=== PATIENT | female | born 1945 | race African-American/Black ===

== ENCOUNTER 2023-08-14 22:19 | Inpatient (IN) | payer MEDICARE, OTHER ==
[~2023-08-14] VITALS: Ht 157.5 cm; Wt 49.9 kg
[2023-08-14] MEDS ORDERED: BUDE10.2 IH (22:33)
[2023-08-14] MEDS ORDERED: QUET25TA PO (22:33)
[2023-08-14] MEDS ORDERED: ALBU8.5H8 IH (22:33)
[2023-08-14] MEDS ORDERED: ACET-3117 PO (22:33)
[2023-08-14] MEDS ORDERED: MELA5TAB21 PO (22:33)
[2023-08-14 23:24] LABS: CALCIUM 9.2 mg/dL (8.5-10.1); CARBON DIOXIDE 29 mmol/L (21-32); CHLORIDE 107 mmol/L (98-107); CREATININE 0.6 mg/dL (0.6-1.3); GLUCOSE 104 mg/dL (74-106); SODIUM SERUM 143 mmol/L (136-145); UREA NITROGEN, BLOOD 8 mg/dL (7-18)
[2023-08-14 23:26] LABS: BASOPHILS % (AUTO) 0.5 % (0.0-2.0); DIFFERENTIAL COMMENT 0; EOSINOPHILS # (AUTO) 0.3 K/uL (0.0-0.7); EOSINOPHILS % (AUTO) 8.1 % (0.0-7.0); ETHANOL < 3 MG/DL (0-10); HEMATOCRIT 37.8 % (31.2-41.9); HEMOGLOBIN 12.7 g/dL (10.9-14.3); LYMPHOCYTES # (AUTO) 1.9 K/uL (0.8-4.8); LYMPHOCYTES % (AUTO) 47.8 % (20.5-51.5); MEAN CORPUSCULAR HGB CONC 34 g/dL (32.3-35.6); MONOCYTES # (AUTO) 0.4 K/uL (0.1-1.30); MONOCYTES % (AUTO) 9.4 % (0.0-11.0); NEUTROPHILS # (AUTO) 1.4 K/uL (1.8-8.9); NEUTROPHILS % (AUTO) 34.2 % (38.5-71.5); PLATELET COUNT (AUTO) 204 K/uL (179-408); RED BLOOD CELL COUNT(AUTO) 4.11 MIL/uL (3.63-4.92); RED CELL DISTRIBUTION WIDTH 13.6 % (12.3-17.7)
[2023-08-14 23:39] LABS: ALANINE AMINOTRANSFERASE 18 U/L (14-59); ALBUMIN 3.6 g/dL (3.4-5.0); ALKALINE PHOSPHATASE 65 U/L (50-136); ASPARTATE AMINOTRANSFERASE 14 U/L (15-37); BILIRUBIN,DIRECT 0.1 mg/dL (0.0-0.2); BILIRUBIN,TOTAL 0.5 mg/dL (0.2-1.0); TOTAL PROTEIN, SERUM 7.4 g/dL (6.4-8.2)
[2023-08-14 23:40] LABS: ACETAMINOPHEN < 2.0 ug/mL (10-30)
[2023-08-15] MEDS ORDERED: POTASSIUM CHLORIDE 20 MEQ TAB.PRT.SR ONE (00:22)
[2023-08-15] MEDS: POTASSIUM CHLORIDE 20 MEQ TAB.PRT.SR PO ONE (00:47)
[2023-08-15] MEDS ORDERED: ZOLPIDEM 5 MG TABLET PO PRN (03:45)
[2023-08-15] MEDS ORDERED: LORAZEPAM 0.5 MG TABLET PO PRN (03:45)
[2023-08-15] MEDS ORDERED: MAG HYDROX/AL HYDROX/SIMETH 30 ML LIQUID UDC PO PRN (03:45)
[2023-08-15] MEDS ORDERED: ACETAMINOPHEN 325 MG TABLET PO PRN (03:45)
[2023-08-15 03:53] VITALS: BP 107/72; TEMP 98.3; O2SAT 98
[2023-08-15] MEDS: BLOOD SUGAR DIAGNOSTIC 1 EACH STRIP VI ONE (04:34)
[2023-08-15 08:46] VITALS: BP 104/61; TEMP 97.8; O2SAT 98
[2023-08-15] MEDS: DIVALPROEX SPRINKLE 125 MG CAP.SPRINK PO SCH (10:40)
[2023-08-15] MEDS: QUETIAPINE FUMARATE 25 MG TABLET PO SCH (10:40)
[2023-08-15] MEDS ORDERED: IPRA3AMP23 NEB (11:00)
[2023-08-15] MEDS ORDERED: IPRA3AMP22 NEB (11:00)
[2023-08-15 15:35] VITALS: BP 104/50; TEMP 98; O2SAT 96
[2023-08-15] MEDS: MELATONIN 3 MG TABLET PO SCH (20:06)
[2023-08-15 20:09] VITALS: BP 110/56; TEMP 98.1; O2SAT 70
[2023-08-15] MEDS ORDERED: Medication Not On Formulary EA (Acetaminophen 650 MG) PO PRN (20:30)
[2023-08-15] MEDS ORDERED: Medication Not On Formulary EA (Melatonin 5 MG) PO PRN (20:30)
[2023-08-16] MEDS ORDERED: LORAZEPAM 1 MG TABLET PO PRN (06:15)
[2023-08-16 16:23] VITALS: BP 126/75; TEMP 98.4; O2SAT 98
[2023-08-16 20:01] VITALS: BP 127/67; TEMP 97.6
[2023-08-17] VITALS (9 sets, daily range): BP systolic 132–143; BP diastolic 84–86; TEMP 98.1–98.3; O2SAT 96–99
[2023-08-17] MEDS: ALBUTEROL SULFATE 2.5 MG/3 ML NEBU NEB PRN (00:01)
[2023-08-17] MEDS: ENSURE ENLIVE (VAN) 240 ML LIQUID PO SCH (08:35)
[2023-08-17] MEDS: FLUTICASONE/VILANTEROL 1 EACH BLST.W.DEV INH SCH (11:00)
[2023-08-18] VITALS (11 sets, daily range): BP systolic 115–143; BP diastolic 77–83; TEMP 97.9–98; O2SAT 95–99
[2023-08-18] MEDS: risperiDONE 0.5 MG TABLET PO SCH (09:00)
[2023-08-19 08:05] VITALS: O2SAT 98
[2023-08-19 09:40] VITALS: BP 151/100; TEMP 97.8; O2SAT 100
[2023-08-19 15:18] VITALS: BP 144/79; TEMP 97.8; O2SAT 94
[2023-08-19 20:00] VITALS: BP 123/64; TEMP 97.8; O2SAT 94
[2023-08-19 20:50] VITALS: O2SAT 96
[2023-08-19 21:05] VITALS: O2SAT 97
[2023-08-20] VITALS (8 sets, daily range): BP systolic 141–145; BP diastolic 82–85; TEMP 98.1–98.2; O2SAT 92–98
[2023-08-21 03:40] VITALS: O2SAT 93
[2023-08-21 03:47] VITALS: O2SAT 95
[2023-08-21 07:56] VITALS: BP 106/72; TEMP 97.8; O2SAT 96
[2023-08-21] MEDS: ENSURE ENLIVE (VAN) 240 ML LIQUID PO SCH (14:30)
[2023-08-21] MEDS: SYMBICORT INH SCH (15:10)
[2023-08-21] MEDS: [UNRECOGNIZED DRUG - OTHER] INH SCH (15:10)
[2023-08-21 15:35] VITALS: BP 105/75; TEMP 98; O2SAT 96
[2023-08-21 20:00] VITALS: BP 127/59; TEMP 97.7; O2SAT 98
[2023-08-22] MEDS: ALBUTEROL SULFATE 8 GM HFA.AER.AD IH PRN (06:35)
[2023-08-22 08:13] VITALS: BP 92/54; TEMP 98; O2SAT 96
[2023-08-22] MEDS ORDERED: risperiDONE 0.5 MG TABLET PO SCH (13:00)
[2023-08-22] MEDS: risperiDONE 1 MG TABLET PO SCH (13:32)
[2023-08-22 15:19] VITALS: BP 96/57; TEMP 98.2; O2SAT 96
[2023-08-22 20:00] VITALS: BP 98/62; TEMP 97.8; O2SAT 94
[2023-08-22] MEDS: HALOPERIDOL LACTATE 5 MG/1 ML VIAL IM PRN (20:54)
[2023-08-22] MEDS: BENZTROPINE MESYLATE 2 MG/2 ML AMPUL IM PRN (20:54)
[2023-08-22 21:30] VITALS: BP 103/66; TEMP 98; O2SAT 95
[2023-08-23 08:16] VITALS: BP 118/64; TEMP 97.7; O2SAT 97
[2023-08-23 16:16] VITALS: BP 98/60; TEMP 97.8; O2SAT 97
[2023-08-23 20:00] VITALS: BP 93/55; TEMP 97.2; O2SAT 90
[2023-08-24 08:12] VITALS: BP 114/68; TEMP 98.3; O2SAT 97
[2023-08-24] MEDS: PALIPERIDONE PALMITATE 234 MG/1.5 ML SYRINGE IM ONE (11:52)
[2023-08-24 16:50] VITALS: BP 109/64; TEMP 98; O2SAT 97
[2023-08-24 20:03] VITALS: BP 98/62; TEMP 98; O2SAT 98
[2023-08-25 07:50] VITALS: BP 124/64; TEMP 98.2; O2SAT 97
[2023-08-25 16:15] VITALS: BP 101/61; TEMP 98; O2SAT 97
[2023-08-25 20:06] VITALS: BP 100/60; TEMP 98.1; O2SAT 95
[2023-08-26 08:18] VITALS: BP 92/64; TEMP 98; O2SAT 99
[2023-08-26 16:00] VITALS: BP 95/53; TEMP 97.7; O2SAT 98
[2023-08-26 20:10] VITALS: BP 91/51; TEMP 98.4; O2SAT 98
[2023-08-26] MEDS: MAGNESIUM HYDROXIDE 30 ML LIQUID UDC PO PRN (22:05)
[2023-08-27 08:04] VITALS: BP 101/66; TEMP 98; O2SAT 98
[2023-08-27 15:43] VITALS: BP 104/47; TEMP 98; O2SAT 98
[2023-08-27 20:13] VITALS: BP 100/52; TEMP 98.1; O2SAT 96
[2023-08-28 08:07] VITALS: BP 91/52; TEMP 98.2; O2SAT 98
[2023-08-28 11:05] VITALS: BP 94/50; O2SAT 98
[2023-08-28 15:16] VITALS: BP 99/50; TEMP 98; O2SAT 97
[2023-09-01] MEDS ORDERED: PALIPERIDONE PALMITATE 156 MG/ML SYRINGE IM SCH (09:00)
== END 2023-08-28 15:25 | DRG 885 ==
LOC: ER 22:32 → GPS 23:00
PROVIDERS: ADMIT Psychiatry & Neurology Psychiatry; ATTEND Nurse Practitioner Acute Care
DX: F29 Unspecified psychosis not due to a substance or known physiological condition (principal); F03.94 Unspecified dementia, unspecified severity, with anxiety; F03.918 Unspecified dementia, unspecified severity, with other behavioral disturbance; E87.6 Hypokalemia; J45.909 Unspecified asthma, uncomplicated; Z79.899 Other long term (current) drug therapy; F41.9 Anxiety disorder, unspecified; F20.0 Paranoid schizophrenia; Z73.6 Limitation of activities due to disability; Z20.822 Contact with and (suspected) exposure to COVID-19
CPT/HCPCS: 36415; 80164; 85025; 93005; 94640; 94664; 94760; G0480; J0515; J1630; J2426; J3535